=== PATIENT | male | born 1975 | race Caucasian/White ===

== ENCOUNTER 2025-01-18 11:19 | Emergency (ER) | payer SELFPAY ==
[2025-01-18] VITALS (19 sets, daily range): BP systolic 106–134; BP diastolic 66–84; PULSE 51–104; RESP 10–39; TEMP 35.6; O2SAT 94–100
--- NOTE | 2025-01-18 11:35 | DI.CT.S_ITS ---
PROCEDURE: CT HEAD/BRAIN WO CON INDICATIONS: seizure TECHNIQUE: Noncontrast 4.5 mm thick angled axial sections acquired from the foramen magnum to the vertex, with coronal and sagittal reformats. For radiation dose reduction, the following was used: automated exposure control, adjustment of mA and/or kV according to patient size. COMPARISON: None. FINDINGS: Image quality: Diagnostic. CSF spaces: Basal cisterns are patent. No extra-axial fluid collections. The ventricles are symmetric in size and shape. Brain: No intracranial bleeds or mass effect. There is cerebral volume loss, with resultant ventricular and sulcal prominence. There are periventricular and deep white matter chronic small vessel ischemic changes. There is intracranial internal carotid artery atherosclerosis. Skull and face: Calvarium and visualized facial bones appear intact, without suspicious lesions. Sinuses: Visualized sinuses and mastoids are clear. IMPRESSION: No acute intracranial pathology. Dictated by: Tramaine Morales M.D. on 01/18/2025 at 12:00 Approved by: Tramaine Morales M.D. on 01/18/2025 at 12:00
--- NOTE | 2025-01-18 11:35 | DI.RAD.S_ITS ---
PROCEDURE: XR CHEST 1V INDICATIONS: seizure TECHNIQUE: One view of the chest was acquired. COMPARISON: None. FINDINGS: Surgical changes and devices: None. Lungs and pleura: Lungs are clear. No pleural effusions or pneumothorax. Mediastinum: Mediastinal contours appear normal. Heart size is normal. Bones and chest wall: No suspicious bony lesions. Overlying soft tissues appear unremarkable. IMPRESSION: No acute cardiopulmonary abnormality is seen. Dictated by: Tramaine Morales M.D. on 01/18/2025 at 11:58 Approved by: Tramaine Morales M.D. on 01/18/2025 at 11:59
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
[2025-01-18 11:45] LABS: Add Manual Diff / Slide Review NO; Basophils Absolute Auto 100 /uL (0-100); Basophils Percent Auto 0.6 % (0-2); Eosinophils Absolute Auto 0 /uL (0-450); Eosinophils Percent Auto 0.3 % (2-4); Hemoglobin 14.5 g/dL (13.5-17.5); Lymphocytes Absolute Auto 1100 /uL (1100-4500); Lymphocytes Percent Auto 11.1 % (25-40); Mean Corpuscular HGB Conc 33.7 % (30-36); Mean Corpuscular Hemoglobin 31.6 PG (26-34); Mean Corpuscular Volume 93.8 fL (80-100); Monocytes Absolute Auto 500 /uL (0-900); Monocytes Percent Auto 4.9 % (3-14); Neutrophils Absolute Auto 8500 /uL (1500-7000); Neutrophils Percent Auto 83.1 % (50-75); Platelet Count 236 X10^3/uL (150-400); Red Blood Cell Count 4.58 X10^6/uL (4.5-5.9); Red Cell Distribution Width 13.4 % (11.6-14.8); White Blood Cell Count 10.2 X10^3/uL (4.5-11.0)
[2025-01-18 11:50] LABS: Appearance Urine UA CLEAR; Bilirubin Urine UA NEGATIVE (NEGATIVE); Color Urine UA YELLOW; Glucose Urine UA NEGATIVE (Negative); Ketones Urine UA TRACE (NEGATIVE); Leukocyte Esterase Urine UA NEGATIVE (NEGATIVE); Nitrite Urine UA NEGATIVE (Negative); Occult Blood Urine UA 1+ (Negative); Protein Urine UA 1+ (Negative); Specific Gravity Urine UA >=1.030 (1.000-1.035); Urobilinogen Urine UA 0.2 E.U./dL (0.2); pH Urine UA 5.5 (4.5-8.0)
[2025-01-18 11:53] LABS: Prothrombin Time 10.9 SECONDS (9.4-12.5)
[2025-01-18 11:54] LABS: Urine Volume 10mL (spun)
[2025-01-18 11:56] LABS: RBC Urine 0-1/HPF (0-5/HPF); WBC Urine 1-5/HPF (0-5/HPF)
[2025-01-18 11:56] LABS: PTT Partial Thromboplastin Tim 28 SECONDS (25.1-36.5)
--- NOTE | 2025-01-18 11:56 | PC.NURSE ---
Pt's partner at bedside, they stated that pt was at work on lathe machine when pt stated what was I doing, had a confusing conversation with pt's boss, went to bathroom to catch his breath and his boss saw his head turn to the right and started shaking. Pt has no known history of seizures, recent trauma, or medications. Call light within reach
[2025-01-18 11:57] LABS: Bacteria Urine None Seen; Culture Indicated Urine Cult Not Indicated; Squamous Epithelial Cell Urine 1-5 /HPF (0-5/HPF)
[2025-01-18 11:58] LABS: Acetaminophen < 10 ug/mL (10-30); Alanine Aminotransferase 25 IU/L (<50); Albumin 4.8 g/dL (3.5-5.0); Albumin Globulin Ratio 1.7 (1.0-2.8); Alkaline Phosphatase 66 U/L (38-126); Aspartate Aminotransferase 31 IU/L (17-59); BUN Creatinine Ratio 15.6 (6-22); Bilirubin Total 0.4 mg/dL (0.2-1.3); Blood Urea Nitrogen 14 mg/dL (9-20); Calcium 9.3 mg/dL (8.4-10.2); Carbon Dioxide 16 mmol/L (22-32); Chloride 107 mmol/L (98-107); Estimated Glomerular Filt Rate > 60 mL/min (>60); Ethanol (ETOH) < 10 mg/dL (<10); Globulin 2.9 g/dL (1.7-4.1); Glucose 134 mg/dL (70-99); HEMOLYSIS < 15 (0-50); Potassium 3.9 mmol/L (3.4-5.1); Salicylate < 1.0 mg/dL (<20); Sodium 141 mmol/L (137-145); Total Protein 7.7 g/dL (6.3-8.2)
[2025-01-18] MEDS: SODIUM CHLORIDE 0.9% 1,000 ML 1000 ML IV ×2 (12:04→12:41)
[2025-01-18 12:15] LABS: Prolactin 25.5 ng/mL (3.7-17.9)
[2025-01-18 12:18] LABS: Lactate (Lactic Acid) 8.1 mmol/L (0.7-2.1)
[2025-01-18 12:25] LABS: Ammonia (NH3) < 9 umol/L (9-30)
[2025-01-18 12:25] LABS: UR Morphine/Opiate cutoff 300 Negative (Negative); Ur Creatinine Normal (Normal); Ur Specific Gravity Normal (Normal); Urine Amphetamines Negative (Negative); Urine Barbiturates Negative (Negative); Urine Benzodiazepines Negative (Negative); Urine Cocaine Negative (Negative); Urine MDMA Negative (Negative); Urine Methadone Negative (Negative); Urine Methamphetamines Negative (Negative); Urine Oxycodone Negative (Negative); Urine Phencyclidine Negative (Negative); Urine Tetrahydrocannabinol Positive (Negative); Urine Tricyclic Antidepressant Positive (Negative); Urine pH Normal (Normal)
[2025-01-18] MEDS: ONDANSETRON 4 MG/2 ML INJ IV (12:41)
[2025-01-18] MEDS: levETIRAcetam 1,000 MG in SODIUM CHLORIDE 0.9% 100 ML 440 MG IV (12:51)
[2025-01-18 12:57] LABS: Thyroid Stimulating Hormone 1.21 uIU/mL (0.47-4.68)
[2025-01-18 13:16] LABS: Reflexed Lactate in 2 Hours Y
[2025-01-18 14:52] LABS: Alanine Aminotransferase 15 IU/L (<50)
[2025-01-18] MEDS: SODIUM CHLORIDE 0.9% 1,000 ML 150 ML IV (15:04)
--- NOTE | 2025-01-18 15:27 | PC.NURSE ---
Pt states he has been taking flexiril for back problems for about 1 week. Pt laying on stretcher, RA, NAD, A&Ox4, breathing even/equal/unlabored at this time. Pt states when he sits up feels nausous and dizzy. Pt placed in reclined positon. Provider updated to pt's endorsement of taking flexiril. Call light within reach, no needs at this time
[2025-01-18 15:28] LABS: Hepatitis B Surface Antigen NEGATIVE s/c (NEGATIVE)
[2025-01-18 15:43] LABS: HIV 1 & 2 Ab/Ag 4th Gen Combo NEGATIVE (NEGATIVE); Hep C Virus Ab w/Reflex Quant NEGATIVE s/c (NEGATIVE)
[2025-01-18] MEDS: ONDANSETRON 4 MG ODT PO (18:03)
[2025-01-20 06:28] LABS: Hepatitis B Surf Ab Qualitativ Non Reactive (.)
== END 2025-01-18 18:08 | disposition home or self-care (01) ==
PROVIDERS: Emergency Provider Emergency Medicine; PCP Emergency Medicine
DX: R56.9 Unspecified convulsions (principal); Z87.820 Personal history of traumatic brain injury
CPT/HCPCS: 36415; 70450; 71045; 80053; 80305; 80320; 80329; 81001; 82140; 83605; 84146; 84443; 85025; 85610; 85730; 87086; 96361; 96365; 96375; 99284; G0480; J1953; J2405